=== PATIENT | male | born 1975 | race African-American/Black ===

== ENCOUNTER 2018-02-13 21:45 | Emergency (ER) | payer MEDICAID ==
[~2018-02-13] VITALS: Ht 180.3 cm; Wt 78.5 kg
[2018-02-13 22:50] VITALS: BP 118/69
== END 2018-02-14 00:15 | disposition left against medical advice (07) ==
LOC: ER 21:45
DX: M25.512 Pain in left shoulder (principal); M54.9 Dorsalgia, unspecified; Z53.21 Procedure and treatment not carried out due to patient leaving prior to being seen by health care provider